=== PATIENT | male | born 1935 | race African-American/Black ===

== ENCOUNTER 2017-01-24 19:28 | Inpatient (IN) | payer OTHER, MEDICAID ==
[~2017-01-24] VITALS: Ht 172.7 cm; Wt 112.9 kg
[2017-01-24 19:56] VITALS: BP_SYST 129
--- NOTE | 2017-01-24 20:13 | NUR ---
Placed in room 05 . Placed on cardiac/vascular sonographer, blood pressure machine and pulse oximeter. To gown for exam. Side rails up. Report given to Sujata
--- NOTE | 2017-01-24 20:20 | NUR ---
Requested Dr Caraballo for MSE , patient c/o 10 /10 lower abdominal pain.
--- NOTE | 2017-01-24 20:45 | NUR ---
PT IN ROOM 5 WITH C/O URINARY RETENTION.DR BUI AWARE.
--- NOTE | 2017-01-24 21:00 | NUR ---
#18 FR Harris catheter with use of sterile technique. Immediate return of 250 cc urine noted. Bedside drainage bag placed below level of bladder. Urine sample collected and sent to lab. Pt tolerated procedure well. Patient arrived with harris in place, changed due to standard of practice prior to admission. Patient unable to toilet self.
[2017-01-24 21:52] LABS: BASOPHILS % (AUTO) 0.7 % (0.0-2.0); EOSINOPHILS # (AUTO) 0.3 K/uL (0.0-0.4); EOSINOPHILS % (AUTO) 4.7 % (0.0-4.0); HEMATOCRIT 31.1 % (36-54); HEMOGLOBIN 10.5 g/dL (14.0-18.0); LYMPHOCYTES # (AUTO) 1.2 K/uL (1.0-5.5); LYMPHOCYTES % (AUTO) 18.2 % (20.5-51.5); MEAN CORPUSCULAR HEMOGLOBIN 30 pg (27-31); MEAN CORPUSCULAR HGB CONC 34 % (32-36); MEAN CORPUSCULAR VOLUME 89 fL (79.0-98.0); MONOCYTES # (AUTO) 0.8 K/uL (0.0-1.0); MONOCYTES % (AUTO) 12.7 % (1.7-9.3); NEUTROPHILS # (AUTO) 4.1 K/uL (1.8-7.7); NEUTROPHILS % (AUTO) 63.7 % (40.0-70.0); PLATELET COUNT (AUTO) 160 K/uL (130-430); RED CELL DISTRIBUTION WIDTH 15.8 % (9.0-15.0); WHITE BLOOD COUNT (AUTO) 6.4 K/uL (4.8-10.8)
[2017-01-24 22:15] LABS: ANION GAP 10 (5-15); CALCIUM 8.9 mg/dL (8.4-11.0); CHLORIDE 107 mmol/L (98-107); GLUCOSE 77 mg/dL (70-99); SODIUM SERUM 136 mmol/L (136-145); UREA NITROGEN, BLOOD 92 mg/dL (8-21)
[2017-01-24] MEDS ORDERED: OXYCODONE/ACETAMINOPHEN 5-325 TABLET PO ONE (22:15)
[2017-01-24 22:21] LABS: ALANINE AMINOTRANSFERASE 12 U/L (12-78); ALBUMIN 3.8 g/dL (3.4-4.8); ASPARTATE AMINOTRANSFERASE 14 U/L (10-37); TOTAL BILIRUBIN 0.5 mg/dL (0.0-1.0); TOTAL PROTEIN, SERUM 7.9 g/dL (6.4-8.3)
[2017-01-24 22:22] LABS: POTASSIUM 7.6 mmol/L (3.5-5.1)
[2017-01-24 22:23] LABS: CREATININE 11.41 mg/dL (0.55-1.30)
[2017-01-24] MEDS ORDERED: INSULIN REGULAR, HUMAN 10 UNITS/0.1 ML INJ IVP ONE (22:30)
[2017-01-24] MEDS ORDERED: DEXTROSE 50% JECT 50 ML DISP.SYRIN IVP ONE (22:30)
[2017-01-24] MEDS ORDERED: SODIUM POLYSTYRENE SULFONATE 15 GM/60 ML UDBTL PO ONE (22:30)
[2017-01-24] MEDS ORDERED: CALCIUM GLUCONATE 1 GM/10 ML VIAL IVP ONE (22:30)
--- NOTE | 2017-01-24 22:30 | NUR ---
# 22 gauge angiocath placed to LAC. Use of asceptic technique. Opsite placed over site. Blood return noted. Blood for lab drawn from site. Flushed with 10 cc of normal saline. No evidence of infiltration noted. Patient tolerated well.
[2017-01-24 23:39] LABS: BILIRUBIN,URINE NEGATIVE (NEGATIVE); CLARITY/URINE CLEAR (CLEAR); COLOR,URINE YELLOW (YELLOW); GLUCOSE,URINE NEGATIVE (NEGATIVE); KETONES,URINE NEGATIVE (NEGATIVE); LEUKOCYTE ESTERASE ,URINE NEGATIVE (NEGATIVE); NITRITE, URINE NEGATIVE (NEGATIVE); PROTEIN URINE TRACE (NEGATIVE); UROBILINOGEN,URINE 0.2 (0.2-1.0)
[2017-01-24 23:40] LABS: BLOOD, URINE TRACE (NEGATIVE)
[2017-01-24] MEDS ORDERED: MORPHINE 4 MG/ML INJ. SYRINGE IVP ONE (23:45)
[2017-01-24] MEDS ORDERED: 0.45% NS 500 ML IV SCH (23:45)
[2017-01-24 23:51] LABS: BACTERIA,URINE RARE /HPF (None Seen); MUCUS,URINE None Seen /LPF (None Seen); WBC,URINE 0-3 /HPF (0-3)
[2017-01-25] VITALS (7 sets, daily range): BP systolic 136–154
--- NOTE | 2017-01-25 | NUR ---
Patient will be admitted to care of DR DAVIS. Admitted to TELE unit. Will go to room 101A. Belongings list completed. Summary report printed. Report will be given at bedside.
[2017-01-25] MEDS ORDERED: LABE100T PO (00:09)
[2017-01-25] MEDS ORDERED: GLIM1TAB PO (00:09)
[2017-01-25] MEDS ORDERED: LOSA50TA3 PO (00:10)
[2017-01-25] MEDS ORDERED: OXYB5TAB11 PO (00:11)
[2017-01-25] MEDS ORDERED: PRO40 PO (00:12)
[2017-01-25] MEDS ORDERED: QUIN40TA PO (00:12)
[2017-01-25] MEDS ORDERED: DET2 PO (00:12)
--- NOTE | 2017-01-25 00:34 | NUR ---
ADMIT NOTE Received pt from ER to the floor with a diagnosis of acute renal failure. Admission process initiated. patient oriented to pain management, safety and call light-teach back done.
--- NOTE | 2017-01-25 00:57 | NUR ---
STEPHEN CON:Steve OVALLE DATE:01/25/17 TIME:0700 REASON FOR CONS:ACUTE RENAL FAILURE STEPHEN REQ:DR.YASHAR Montenegro:ZAHRA
[2017-01-25] MEDS ORDERED: INSULIN REGULAR, HUMAN 100 UNITS/ML, 10 ML VIAL (novoLIN R) SUBCUT PRN (01:00)
[2017-01-25] MEDS ORDERED: ACETAMINOPHEN 325 MG TABLET PO PRN (01:00)
[2017-01-25] MEDS ORDERED: HYDROcodone/ACETAMIN 5-325 MG TAB (NORCO/ VICODIN) PO PRN (01:00)
[2017-01-25] MEDS ORDERED: NS 500 ML IV SCH (01:30)
[2017-01-25] MEDS ORDERED: CITRIC ACID/SODIUM CITRATE 30 ML UDC PO SCH (01:30)
--- NOTE | 2017-01-25 01:54 | NUR ---
PHY CON:Ronaldo HOLDEN DATE:01/25/17 TIME:0700 REASON FOR CONS:STEVE,HX OF PROSTATE CANCER PHY REQ:Natasha HUERTA S.W:ZAHRA
[2017-01-25] MEDS: 0.45% NACL 1,000 ML IV SCH ×3 (02:08→22:24)
--- NOTE | 2017-01-25 02:35 | NUR ---
notes: pt is alert, awake,oriented x 4. complain of mild lower abdominal pain. vital sign are stable. not distress. pt has iv lock to left ac gauge 22-patent and intact. assessment done. pt has discoloration of skin to left lower leg. bilateral pitting edema seen on both fet. discussed poc to pt and daughter. they verbalized understanding. needs attended. call light in reach. side rails up. lowest bed position. will monitor. Addendum: 01/25/17 at 0239 by Talib Duff RN dr. akers is at bedside and seen the pt.
--- NOTE | 2017-01-25 03:00 | NUR ---
notes: pt has harris catheter with bright red clear urine. draining well. no clots.
--- NOTE | 2017-01-25 03:52 | NUR ---
notes: pt call for water. no pain. no distress. stable. needs attended. call light in reach. will monitor.
[2017-01-25] MEDS: ONDANSETRON HCL 4 MG/2 ML VIAL IVP PRN ×2 (05:33→12:22)
--- NOTE | 2017-01-25 06:17 | NUR ---
round notes: pt is awake, complain of nausea. pt also complain that he's hungry. blood sugar 100. needs attended. call light in reach. will monitor.
--- NOTE | 2017-01-25 07:12 | NUR ---
CLOSING: RECEIVED CALL FROM . ASKING FOR INSURANCE. READY BACK TO MD PT INSURANCE. MD STATED HE WILL SEE THE PT. INFORMED MD ABOUT BLOOD IN URINE AND LEVEL OF CREATINE. PT IS STABLE. IVF INFUSING WELL. NO PAIN. CALL LIGHT IN REACH. WILL GIVE BED SIDE REPORT TO AM RN.
[2017-01-25 07:24] LABS: BASOPHILS % (AUTO) 0.5 % (0.0-2.0); EOSINOPHILS # (AUTO) 0.2 K/uL (0.0-0.4); EOSINOPHILS % (AUTO) 3.5 % (0.0-4.0); HEMATOCRIT 31.1 % (36-54); HEMOGLOBIN 10.1 g/dL (14.0-18.0); LYMPHOCYTES # (AUTO) 1.4 K/uL (1.0-5.5); LYMPHOCYTES % (AUTO) 20.5 % (20.5-51.5); MEAN CORPUSCULAR HEMOGLOBIN 29 pg (27-31); MEAN CORPUSCULAR HGB CONC 33 % (32-36); MEAN CORPUSCULAR VOLUME 89 fL (79.0-98.0); MONOCYTES % (AUTO) 13.9 % (1.7-9.3); NEUTROPHILS # (AUTO) 4.3 K/uL (1.8-7.7); NEUTROPHILS % (AUTO) 61.6 % (40.0-70.0); PLATELET COUNT (AUTO) 166 K/uL (130-430); RED BLOOD CELL COUNT(AUTO) 3.48 MIL/uL (4.2-6.2); RED CELL DISTRIBUTION WIDTH 16.3 % (9.0-15.0); WHITE BLOOD COUNT (AUTO) 6.9 K/uL (4.8-10.8)
--- NOTE | 2017-01-25 07:30 | NUR ---
AM ROUNDS: REPORT GIVEN AT BEDSIDE BY KATYA ARIAS. IVF ON GOING AT LEFT AC INTACT. GUZMAN DRAINING TO PINKISH-REDDISH COLOR URINE. NO DISTRESS.
--- NOTE | 2017-01-25 07:32 | NUR ---
RECEIVED CALL FROM DR. ROBERT RIVAS STATED TO CANCELL CONSULT FOR DR. ZIMMERMAN UROLOGIST. INFORM DR. DAVIS THAT I SPOKE TO DR. ZIMMERMAN AND HE WILL SEE THE PT. BUT DR. DAVIS STILL WANTS TO CANCEL THE CONSULT. CALL DR. ZIMMERMAN EXCHANGE TO CANCEL.
[2017-01-25 07:39] LABS: ALANINE AMINOTRANSFERASE 13 U/L (12-78); ALBUMIN 3.5 g/dL (3.4-4.8); ANION GAP 12 (5-15); ASPARTATE AMINOTRANSFERASE 12 U/L (10-37); CALCIUM 8.9 mg/dL (8.4-11.0); CHLORIDE 108 mmol/L (98-107); GLUCOSE 102 mg/dL (70-99); SODIUM SERUM 140 mmol/L (136-145); TOTAL BILIRUBIN 0.7 mg/dL (0.0-1.0); TOTAL PROTEIN, SERUM 7.5 g/dL (6.4-8.3); UREA NITROGEN, BLOOD 85 mg/dL (8-21)
[2017-01-25 08:05] LABS: POTASSIUM 6.2 mmol/L (3.5-5.1)
[2017-01-25] MEDS ORDERED: PANTOPRAZOLE SODIUM 40 MG TAB PO SCH (09:00)
[2017-01-25] MEDS: CITRIC ACID/SODIUM CITRATE 30 ML UDC PO SCH ×2 (09:10→21:40)
[2017-01-25] MEDS: LABETALOL HCL 100 MG TABLET PO SCH ×2 (09:11→21:39)
--- NOTE | 2017-01-25 09:16 | NUR ---
MEDS: TOOK HIS PO MEDS WELL. ON WILLIAMSON'S POSITION ,FOR RENAL ULTRASOUND ORDERED.DAUGHTER AT BEDSIDE.
[2017-01-25] MEDS ORDERED: SODIUM POLYSTYRENE SULFONATE 15 GM/60 ML UDBTL PO ONE (10:00)
--- NOTE | 2017-01-25 10:45 | NUR ---
Nutrition Update Kenan Scale 17 noted. Pt admitted for ARF. Diet: [facility] BMI: 37.9 kg/m2 RD to follow per nutrition care standards.
--- NOTE | 2017-01-25 12:05 | NUR ---
BLOOD SUGAR: BLOOD SUGAR TAKEN,NO INSULIN NEEDED PER SLIDING SCALE. KAYEXALATE 30GRAMS PO GIVEN SLOWLY. DAUGHTER AT BEDSIDE.
--- NOTE | 2017-01-25 12:26 | NUR ---
ZOFRAN IV: PT VOMITED YELLOWISH COLOR DISCHARGES,DUE IV ZOFRAN GIVEN ORDERED.
[2017-01-25] MEDS ORDERED: FAMOTIDINE 20 MG TABLET PO ONE (13:45)
--- NOTE | 2017-01-25 14:37 | NUR ---
RN ROUNDS: NO VOMITING NOTED. STABLE.
--- NOTE | 2017-01-25 16:21 | NUR ---
ROUNDS: RESTING. NO DISTRESS.
--- NOTE | 2017-01-25 17:11 | NUR ---
BLOOD SUGAR: BLOOD SUGAR TAKEN,NO INSULIN NEEDED PER SLIDING SCALE.
--- NOTE | 2017-01-25 18:44 | NUR ---
END OF SHIFT: STABLE. NO DISTRESS. SON AT BEDSIDE.
--- NOTE | 2017-01-25 19:30 | NUR ---
Received patient report from outgoing AM nurse. Patient alert, verbally and coherently responsive to sign writer hand. Reported that he is presently going bowel movement greer due to the medication he took this morning. Explained to patient that is the intended effect of the medication to lower his potassium level, and to call for assistance anytime he needs. Patient verbally agreed.
[2017-01-25] MEDS ORDERED: TEMAZEPAM 15 MG CAPSULE PO PRN (23:00)
--- NOTE | 2017-01-25 23:05 | NUR ---
CONTINUITY OF CARE ASSUMED PATIENT CARE FROM PRODUCTION SUPERVISOR TRAINEE TERESITA, PATIENT IN BED, VITALS STABLE AND DENIES ANY PAIN AND DISCOMFORT AT THIS TIME. NEEDS ATTENDED TO. WILL CONTINUE TO MONITOR.
[2017-01-26] VITALS (7 sets, daily range): BP systolic 121–156
--- NOTE | 2017-01-26 02:10 | NUR ---
ROUNDS PATIENT ASLEEP, NO SOB NOR PAIN AND DISCOMFORT NOTED, WILL CONTINUE TO MONITOR.
--- NOTE | 2017-01-26 04:00 | NUR ---
PATIENT RESTING: Patient resting quietly. No acute distress noted. Vital signs within normal range.
[2017-01-26] MEDS: 0.45% NACL 1,000 ML IV SCH ×3 (05:34→20:53)
--- NOTE | 2017-01-26 06:15 | NUR ---
CLOSING NOTES PATIENT AWAKE, VITALS STABLE, NO PAIN AND DISCOMFORT AT THIS TIME. ALL NEEDS ATTENDED TO. SAFETY MEASURES MAINTAINED. CALL LIGHT PLACED WITHIN REACH.
[2017-01-26 06:42] LABS: BASOPHILS % (AUTO) 0.7 % (0.0-2.0); EOSINOPHILS # (AUTO) 0.4 K/uL (0.0-0.4); EOSINOPHILS % (AUTO) 6.1 % (0.0-4.0); HEMATOCRIT 30.1 % (36-54); HEMOGLOBIN 9.9 g/dL (14.0-18.0); LYMPHOCYTES # (AUTO) 1.2 K/uL (1.0-5.5); LYMPHOCYTES % (AUTO) 20.8 % (20.5-51.5); MEAN CORPUSCULAR HEMOGLOBIN 30 pg (27-31); MEAN CORPUSCULAR HGB CONC 33 % (32-36); MEAN CORPUSCULAR VOLUME 90 fL (79.0-98.0); MONOCYTES # (AUTO) 0.8 K/uL (0.0-1.0); MONOCYTES % (AUTO) 13.5 % (1.7-9.3); NEUTROPHILS # (AUTO) 3.3 K/uL (1.8-7.7); NEUTROPHILS % (AUTO) 58.9 % (40.0-70.0); PLATELET COUNT (AUTO) 146 K/uL (130-430); RED BLOOD CELL COUNT(AUTO) 3.36 MIL/uL (4.2-6.2); RED CELL DISTRIBUTION WIDTH 16.3 % (9.0-15.0); WHITE BLOOD COUNT (AUTO) 5.8 K/uL (4.8-10.8)
[2017-01-26 06:48] LABS: ALANINE AMINOTRANSFERASE 12 U/L (12-78); ALBUMIN 3.1 g/dL (3.4-4.8); ANION GAP 7 (5-15); ASPARTATE AMINOTRANSFERASE 13 U/L (10-37); CALCIUM 8.2 mg/dL (8.4-11.0); CHLORIDE 108 mmol/L (98-107); CREATININE 7.17 mg/dL (0.55-1.30); GLUCOSE 96 mg/dL (70-99); POTASSIUM 4.6 mmol/L (3.5-5.1); SODIUM SERUM 142 mmol/L (136-145); TOTAL BILIRUBIN 0.8 mg/dL (0.0-1.0); TOTAL PROTEIN, SERUM 6.9 g/dL (6.4-8.3); UREA NITROGEN, BLOOD 59 mg/dL (8-21)
[2017-01-26 08:02] LABS: INR 1.1 (0.80-1.20); PROTHROMBIN TIME 11.8 SECS (9.5-12.5)
[2017-01-26] MEDS: FAMOTIDINE 20 MG TABLET PO SCH (08:40)
[2017-01-26] MEDS: LABETALOL HCL 100 MG TABLET PO SCH ×2 (08:41→21:49)
[2017-01-26] MEDS: CITRIC ACID/SODIUM CITRATE 30 ML UDC PO SCH ×2 (08:41→21:40)
--- NOTE | 2017-01-26 10:12 | NUR ---
Spoke with pt at bedside. He is alert. lives with roommate in ss home, uses a walker with a seat or a cane. Son Lenny at bedside [phone]. Sister Jacky is primary contact (number on facesheet). Both work but try to attend MD appts and provide transport. Per pt, medical condition has declined and has not driven for over a month but does have access to [employer] transportation. Advised that [employer] has additional benefits because he has renal failure...pt or family will need to notify plan. Also discussed MCAL briefly. May qualify for share of cost. Will follow hosp course/damian gunderson/christine/catia hcp [phone]
--- NOTE | 2017-01-26 10:36 | NUR ---
ROUNDING: AM MEDS GIVEN, PT TOLERATED WELL. SON AT BEDSIDE. PT AAOX4. NO ACUTE SIGNS OF RESP DISTRESS, PT ON RA. SKIN COLOR NORMAL FOR ETHNICITY. IV INTACT AND PATENT, NO REDNESS/PAIN/SWELLING. FC INTACT AND DRAINING WELL. DENIES PAIN AT THIS TIME. BED AT LOWEST POSITION, CALL LIGHT IN REACH, BED ALARM ON, SIDE RAILX3.
--- NOTE | 2017-01-26 12:47 | NUR ---
ROUNDING: PT LAYING IN BED, IN HIGH FOWLERS. PT EATING LUNCH. NO ACUTE SIGNS OF RESP DISTRESS, NO SOB. SKIN COLOR NORMAL FOR ETHNICITY. IV INTACT AND PATENT, NO REDNESS/SWELLING/PAIN. PT DENIES DIZZINESS/LIGHTHEADED, COOLNESS, SWEATING. DENIES NUMBNESS/TINGLING. EDUCATED PT ON SIGNS & SYMPTOMS OF HYPOGLYCEMIA AND HYPERGLYCEMIA, PT VERBALIZED UNDERSTANDING. FC INTACT AND PATENT, DRAINING WELL TO GRAVITY. BED AT LOWEST POSITION, CALL LIGHT IN REACH, BED ALARM ON, SIDE RAILX3.
--- NOTE | 2017-01-26 14:08 | NUR ---
ROUNDING: PT RESTING IN BED. AAOX4. NO ACUTE SIGNS OF RESP DISTRESS, NO SOB. SKIN COLOR NORMAL FOR ETHNICITY. IV INTACT AND PATENT, NO REDNESS/SWELLING/PAIN. IVF INFUSING WELL. FC INTACT AND DRAINING WELL TO GRAVITY. PT DENIES DIZZINESS/LIGHTHEADED, COOLNESS, AND SWEATING. DENIES NUMBNESS/TINGING. BED AT LOWEST POSITION, CALL LIGHT IN REACH, BED ALARM ON, SIDE RAILX3. CONTINUE TO MONITOR.
--- NOTE | 2017-01-26 16:09 | NUR ---
ROUNDING: PT RESTING IN BED, HIGH FOWLERS WATCHING TV. DAUGHTER CALLED AND WANTED TO LET PT KNOW SHE WILL BE AN HOUR LATE. PT INFORMED AND VERBALIZED UNDERSTANDING. NO ACUTE SIGNS OF RESP DISTRESS, NO SOB. SKIN COLOR NORMAL FOR ETHNICITY. IV INTACT, NO REDNESS/SWELLING/PAIN. FC INTACT AND DRAINING WELL TO GRAVITY. PT DENIES PAIN AT THIS TIME. DENIES DIZZINESS/LIGHTHEADED, COOLNESS, SWEATING, NUMBNESS/TINGLING. ABLE TO MOVE BILATERAL TOES. BED AT LOWEST POSITION, CALL LIGHT IN REACH, BED ALARM ON, SIDE RAILX3.
--- NOTE | 2017-01-26 18:28 | NUR ---
CLOSING NOTE: DAUGHTER AT BEDSIDE. PT SITTING UP IN HIGH FOWLERS, EATING DINNER. NO ACUTE SIGNS OF RESP DISTRESS, NO SOB. PT ON ROOM AIR. SKIN WARM DRY AND COLOR NORMAL FOR ETHNICITY. IV INTACT AND PATENT, NO REDNESS/SWELLING/PAIN. FC INTACT AND DRAINING WELL TO GRAVITY. PT DENIES DIZZINESS, LIGHTHEADED, COOLNESS, SWEATING. DENIES NUMBNESS/TINGING. ALL QUESTIONS ANSWERED. BED AT LOWEST POSITION, CALL LIGHT IN REACH, BED ALARM ON, SIDE RAILX3. WILL ENDORSE PLAN OF CARE TO JOHN GANNON.
--- NOTE | 2017-01-26 19:25 | NUR ---
BEDSIDE REPORT DONE.PATIENT EATING DINNER , AT BEDSIDE.ORIENTED X4. IVF INFUSING WELL ,SITE CLEAR. GUZMAN CATH WITH LIGHT PINKISH CLEAR COLOR. SCD /BED ALARM ON.
--- NOTE | 2017-01-26 20:05 | NUR ---
PATIENT CONVERSING AND WATCHING TV SHOWS WITH FAMILIES WHO ARE AT BEDSIDE..IVF OF 1/2NS INFUSING WELL TO LEFT AC ,SITE CLEAR.DENIES CHEST PAIN NOR SOB. ABDOMEN LARGE AND SOFT..HAS GUZMAN CATHETER WITH LIGHT PINKISH CLEAR COLOR URINE. SINUS RHYTHM ON TELEMONITOR. CALL LIGHT WITHIN REACH.BED IN LOW POSITION.EDUCATED ON ASPIRATION/FALL PRECAUTION,NUTRITION.
--- NOTE | 2017-01-26 21:40 | NUR ---
MEDS ADMIN: ALL DUE PO.IV MEDS GIVEN. TOOK BACITRA WITH CHOCOLATE PUDDING. BEING HELPED BY GRANDSON. DENIES PAIN.
--- NOTE | 2017-01-26 22:15 | NUR ---
PATIENT CALLED TO HAVE BED TAYLOR TO TRY TO HAVE BOWEL MOVEMENT. PLACED .
[2017-01-27] VITALS (7 sets, daily range): BP systolic 117–144
--- NOTE | 2017-01-27 00:05 | NUR ---
patient resting with eyes close during this rounds.
--- NOTE | 2017-01-27 03:30 | NUR ---
awakened due to vital signs taking. offered bed patterson but refuse he will do in am.denies pain.
[2017-01-27] MEDS: 0.45% NACL 1,000 ML IV SCH ×3 (05:03→20:06)
--- NOTE | 2017-01-27 06:40 | NUR ---
CLOSING: ALL NEEDS WERE ATTENDED.NO ACUTE CARDIOPULMONARY DISTRESS .SLEPT AT LONG INTERVALS. NO SIGNS OF HYPOGLYCEMIA. SINUS RHYTHM.
[2017-01-27 07:41] LABS: BASOPHILS % (AUTO) 0.8 % (0.0-2.0); EOSINOPHILS # (AUTO) 0.4 K/uL (0.0-0.4); EOSINOPHILS % (AUTO) 6.4 % (0.0-4.0); HEMATOCRIT 28.1 % (36-54); HEMOGLOBIN 9.2 g/dL (14.0-18.0); LYMPHOCYTES # (AUTO) 1.5 K/uL (1.0-5.5); MEAN CORPUSCULAR HEMOGLOBIN 29 pg (27-31); MEAN CORPUSCULAR HGB CONC 33 % (32-36); MEAN CORPUSCULAR VOLUME 89 fL (79.0-98.0); MONOCYTES # (AUTO) 0.7 K/uL (0.0-1.0); NEUTROPHILS % (AUTO) 54.8 % (40.0-70.0); PLATELET COUNT (AUTO) 144 K/uL (130-430); RED BLOOD CELL COUNT(AUTO) 3.15 MIL/uL (4.2-6.2); RED CELL DISTRIBUTION WIDTH 16.1 % (9.0-15.0); WHITE BLOOD COUNT (AUTO) 5.6 K/uL (4.8-10.8)
--- NOTE | 2017-01-27 07:50 | NUR ---
OPENING NOTE: PT REPOSITION. SITTING UP EATING BREAKFAST. PT AAOX4. NO ACUTE SIGNS OF RESP DISTRESS, NO SOB. SKIN WARM DRY AND COLOR NORMAL FOR ETHNICITY. IV INTACT AND PATENT, NO REDNESS/SWELLING/PAIN. IVF INFUSING WELL. FC INTACT AND DRAINING WELL TO GRAVITY. BED AT LOWEST POSITION, CALL LIGHT IN REACH, BED ALARM ON, SIDE RAILX3.
[2017-01-27 08:03] LABS: ANION GAP 6 (5-15); CALCIUM 8.1 mg/dL (8.4-11.0); CHLORIDE 109 mmol/L (98-107); CREATININE 5.24 mg/dL (0.55-1.30); GLUCOSE 105 mg/dL (70-99); POTASSIUM 4.2 mmol/L (3.5-5.1); SODIUM SERUM 142 mmol/L (136-145); UREA NITROGEN, BLOOD 47 mg/dL (8-21)
[2017-01-27] MEDS: CITRIC ACID/SODIUM CITRATE 30 ML UDC PO SCH ×2 (08:35→22:13)
[2017-01-27] MEDS: LABETALOL HCL 100 MG TABLET PO SCH ×2 (08:36→22:14)
[2017-01-27] MEDS: FAMOTIDINE 20 MG TABLET PO SCH (08:36)
--- NOTE | 2017-01-27 10:26 | NUR ---
ROUNDING: FAMILY AT BEDSIDE. WORKING WITH PT THIS MORNING. NO ACUTE SIGNS OF RESP DISTRESS, NO SOB. SKIN COLOR NORMAL FOR ETHNICITY. IV INTACT AND PATENT, NO REDNESS/PAIN/SWELLING. IVF INFUSING WELL. FC INTACT AND DRAINING WELL. CALL LIGHT IN REACH, BED ALARM ON, SIDE RAILX3, BED AT LOWEST POSITION.
--- NOTE | 2017-01-27 12:00 | NUR ---
ROUNDING: PT RESTING IN BED IN HIGH FOWLERS, TALKING TO FAMILY AT BEDSIDE. NO ACUTE SIGNS OF RESP DISTRESS, NO SOB. PT IS ON ROOM AIR. SKIN COLOR NORMAL FOR ETHNICITY. IV INTACT AND PATENT, NO REDNESS/SWELLING/PAIN TO SITE. FC INTACT AND DRAINING WELL TO GRAVITY. BED AT LOWEST POSITION, CALL LIGHT IN REACH, BED ALARM ON, SIDE RAILX3. Addendum: 01/27/17 at 1211 by Bradford العراقي RN DENIES DIZZINESS/LIGHTHEADED, COOLNESS, SWEATING. DENIES NUMBNESS/TINGLING.
[2017-01-27] MEDS ORDERED: METOCLOPRAMIDE HCL 10 MG/2 ML VIAL IVP PRN (13:00)
--- NOTE | 2017-01-27 14:17 | NUR ---
ROUNDING: FAMILY MEMBER AT BEDSIDE. PT LAYING IN BED IN HIGH FOWLERS. NO ACUTE SIGNS OF RESP DISTRESS, NO SOB. SKIN COLOR NORMAL FOR ETHNICITY. PT DENIES PAIN, DIZZINESS/LIGHTHEADED, COOLNESS, SWEATING. DENIES NUMBNESS/TINGLING. DENIES NAUSEA AND VOMITING AT THIS TIME. FC INTACT AND DRAINING WELL TO GRAVITY. IV INTACT AND PATENT, NO REDNESS/SWELLING/PAIN. IVF INFUSING WELL. BED AT LOWEST POSITION, CALL LIGHT IN REACH, BED ALARM ON, SIDE RAILX3.
--- NOTE | 2017-01-27 15:02 | NUR ---
PHYSICAL THERAPY CO-SIGN The Physical Therapy Progress Notes documented by Biological Inspector have been reviewed. Reviewed/Co-Signed by: Jossy Michelle PT Documentation Done by: VERONICA CONTRERAS PTA PT MAKING SLOW GAINS Addendum: 01/27/17 at 1502 by Jossy Michelle PT Amended: Links added.
--- NOTE | 2017-01-27 16:08 | NUR ---
ROUNDING: ASSISTED PATIENT ONTO BED TAYLOR. DAUGHTER AT BEDSIDE. NO ACUTE SIGNS OF RESP DISTRESS, NO SOB. SKIN COLOR NORMAL FOR ETHNICITY. IV INTACT AND PATENT, NO REDNESS/SWELLING/PAIN TO IV SITE. IVF INFUSING WELL. FC INTACT AND DRAINING WELL. BED AT LOWEST POSITION, CALL LIGHT IN REACH, BED ALARM ON, SIDE RAILX3.
--- NOTE | 2017-01-27 18:32 | NUR ---
CLOSING NOTE: DAUGHTER AT BEDSIDE. PT LAYING IN BED, HIGH FOWLERS TALKING TO DAUGHTER AND WATCHING TV. NO ACUTE SIGNS OF RESP DISTRESS, NO SOB. PT DENIES DIZZINESS/LIGHTHEADED, COOLNESS, SWEATING, DIZZINES/TINGLING. PT AAOX4. IV INTACT AND PATENT, NO REDNESS/SWELLING/PAIN TO SITE. FC INTACT AND DRAINING WELL TO GRAVITY. ALL NEEDS MET AT THIS TIME. WILL ENDORSE PLAN OF CARE TO JOHN GANNON.
--- NOTE | 2017-01-27 19:30 | NUR ---
HYGIENE: JUSTYNA CARE DONE DUE TO INCONTINENT OF SMALL LOOSE STOOL.
--- NOTE | 2017-01-27 20:00 | NUR ---
INITIAL NOTES: PATIENT ION BED AWAKE ,ORIENTED X4. FAMILIES AT BEDSIDE ALL CONVERSING TO EACH OTHER. IVF INFUSING WELL. GUZMAN DRAINING LIGHT PINKISH . SINUS RHYTHM. HAD GOOD DINNER. VITAL SIGNS STABLE. DENIES SOB NOR PAIN. WILL MONITOR CLOSEL.
--- NOTE | 2017-01-27 21:00 | NUR ---
MEDS ADMIN: ALL MEDS GIVEN WITH PUDDING DUE TO BAD TASTE. IVF INFUSING WELL.
--- NOTE | 2017-01-27 21:15 | NUR ---
REQUESTED FOR BEDPAN TO HAVE BOWEL MOVEMENT.HAD SMALL LOOSE STOOL.
--- NOTE | 2017-01-27 23:30 | NUR ---
ASKED FOR BED TO HAVE BM. FALSE ALARM. PASSED GAS. EXPLAIN WILL ASK FOR STOOL SOFTENER FROM MD IN AM.
[2017-01-28 00:15] VITALS: BP_SYST 119
--- NOTE | 2017-01-28 01:00 | NUR ---
PATIENT RESTING QUIETELY ,WITH EYES CLOSE. AROUSABLE. NO DISTRESS.
--- NOTE | 2017-01-28 03:00 | NUR ---
HAS SMEAR OF STOOL. JUSTYNA CARE DONE.
[2017-01-28] MEDS: 0.45% NACL 1,000 ML IV SCH ×2 (04:13→12:29)
[2017-01-28 04:42] VITALS: BP_SYST 147
[2017-01-28 07:21] LABS: BASOPHILS % (AUTO) 0.8 % (0.0-2.0); EOSINOPHILS # (AUTO) 0.4 K/uL (0.0-0.4); EOSINOPHILS % (AUTO) 7.1 % (0.0-4.0); HEMATOCRIT 28.4 % (36-54); HEMOGLOBIN 9.3 g/dL (14.0-18.0); LYMPHOCYTES # (AUTO) 1.5 K/uL (1.0-5.5); LYMPHOCYTES % (AUTO) 25.1 % (20.5-51.5); MEAN CORPUSCULAR HEMOGLOBIN 30 pg (27-31); MEAN CORPUSCULAR HGB CONC 33 % (32-36); MEAN CORPUSCULAR VOLUME 90 fL (79.0-98.0); MONOCYTES # (AUTO) 0.7 K/uL (0.0-1.0); MONOCYTES % (AUTO) 12.2 % (1.7-9.3); NEUTROPHILS # (AUTO) 3.3 K/uL (1.8-7.7); NEUTROPHILS % (AUTO) 54.8 % (40.0-70.0); PLATELET COUNT (AUTO) 136 K/uL (130-430); RED BLOOD CELL COUNT(AUTO) 3.15 MIL/uL (4.2-6.2); RED CELL DISTRIBUTION WIDTH 15.7 % (9.0-15.0); WHITE BLOOD COUNT (AUTO) 5.9 K/uL (4.8-10.8)
--- NOTE | 2017-01-28 07:30 | NUR ---
CLOSING: PATIENT VERBALIZING WANT TO GO HOME. ALL NEEDS WERE ATTENDED. ASPIRATION /FALL PRECAUTION IN PROCESS.NO SIGNS OF HYPOGLYCEMIA.NO ACUTE CARDIOPULMONARY DISTRESS. REMINDED RN TO GIVE WARM WATER WITH SALT TO DO MOUTH WASH. SLEPT AT SHORT INTERVALS. WILL GIVE REPORT TO AM RN.
[2017-01-28 08:01] LABS: ANION GAP 9 (5-15); CALCIUM 8.3 mg/dL (8.4-11.0); CHLORIDE 105 mmol/L (98-107); CREATININE 3.98 mg/dL (0.55-1.30); GLUCOSE 92 mg/dL (70-99); POTASSIUM 3.8 mmol/L (3.5-5.1); SODIUM SERUM 140 mmol/L (136-145); UREA NITROGEN, BLOOD 39 mg/dL (8-21)
[2017-01-28 08:10] VITALS: BP_SYST 120
[2017-01-28] MEDS: CITRIC ACID/SODIUM CITRATE 30 ML UDC PO SCH (08:13)
[2017-01-28] MEDS: FAMOTIDINE 20 MG TABLET PO SCH (08:14)
[2017-01-28] MEDS: LABETALOL HCL 100 MG TABLET PO SCH (08:14)
--- NOTE | 2017-01-28 08:15 | NUR ---
Routine Patient eating breakfast with daughterJacky at bedside. Scheduled medications given per order. Patient stable.
--- NOTE | 2017-01-28 10:14 | NUR ---
plan transfer to [facility] when CT is completed. Call placed to [facility] [phone] to set up w/c transport. for 5pm once CT scan is completed. Pt and family aware. damian gunderson/christine/catia [phone]
--- NOTE | 2017-01-28 10:20 | NUR ---
Routine Patient resting in bed with daughter at bedside. No complaint of pain or discomfort. Patient stable.
[2017-01-28] MEDS ORDERED: PANTOPRAZOLE SODIUM 40 MG TAB PO ONE (11:00)
--- NOTE | 2017-01-28 12:25 | NUR ---
Routine Patient sitting in chair at bedside. Daughter at bedside as well. Blood sugar checked at 1135 - result 135 mg/dl - no coverage required. Scheduled med given per order. Patient stable at this time.
[2017-01-28 12:47] VITALS: BP_SYST 129
--- NOTE | 2017-01-28 13:01 | NUR ---
Terrazzo Finisher Helper Note RAFAEL received a call from patient's nurse requesting SALES HUNTER meet with patient's daughter at her request. RAFAEL met with patient's daughter, Jacky, at bedside. Jacky stated that patient has [employer] but the share of cost is very high: $1,600. She would like this checked as patient would like to receive In Home Supportive Services. Patient is currently paying privately for non-medical in home care, and will probably require increased hours when he returns home from the SNF. RAFAEL noted that patient has [employer] listed as a third insurance. RAFAEL sent an email to Raul with [employer] requesting he contact Jacky, , to determine if anything can be done to reduce patient's share of cost. RAFAEL discussed above with patient and his daughter. They have Social Service contact information; will remain available upon request. Addendum: 01/28/17 at 1539 by Chana Nix LCSW RAFAEL received a call from Raul. He stated he will contact patient's daughter. RAFAEL discussed with Jacky.
[2017-01-28] MEDS ORDERED: PHENAZOPYRIDINE HCL 100 MG TABLET PO ONE (13:15)
--- NOTE | 2017-01-28 13:34 | NUR ---
Dr. Mendoza informed regarding result CT Scan abdomen/pelvis .
--- NOTE | 2017-01-28 14:53 | NUR ---
PHYSICAL THERAPY CO-SIGN The Physical Therapy Progress Notes documented by Band Ripsaw Operator have been reviewed. I CONCUR W/EDI PROGRAMMER ANALYST NOTE; CONT PER TX PLAN Reviewed/Co-Signed by: Kamryn Brady PT Documentation Done by: VERONICA CONTRERAS EDI PROGRAMMER ANALYST Addendum: 01/28/17 at 1454 by Kamryn Brady PT Amended: Links added.
[2017-01-28 15:51] VITALS: BP_SYST 132
--- NOTE | 2017-01-28 16:00 | NUR ---
Routine Tap water enema done per order. Patient tolerated well.
--- NOTE | 2017-01-28 17:18 | NUR ---
Called report to JOHN Nguyễn at [facility] [phone].
[2017-01-28 17:21] VITALS: BP_SYST 132
--- NOTE | 2017-01-28 17:40 | NUR ---
Transfer Patient transferred in stable in wheelchair via ambulance to [facility] .
[2017-01-28] MEDS ORDERED: PHENAZOPYRIDINE HCL 100 MG TABLET PO SCH (18:30)
[2017-01-29] MEDS ORDERED: PANTOPRAZOLE SODIUM 40 MG TAB PO SCH (09:00)
== END 2017-01-28 17:40 | DRG 684 ==
LOC: SED 19:28 → STU 23:32
PROVIDERS: ADMIT Internal Medicine; ATTEND Internal Medicine
DX: N17.9 Acute kidney failure, unspecified (principal); D63.8 Anemia in other chronic diseases classified elsewhere; E11.9 Type 2 diabetes mellitus without complications; E87.5 Hyperkalemia; G89.29 Other chronic pain; R10.9 Unspecified abdominal pain; I10 Essential (primary) hypertension; N40.0 Benign prostatic hyperplasia without lower urinary tract symptoms; Z85.46 Personal history of malignant neoplasm of prostate; Z79.899 Other long term (current) drug therapy; Z92.3 Personal history of irradiation
CPT/HCPCS: 36415; 76770; 80048; 80053; 81000-TC; 82962; 83605; 84484; 85025; 85610-TC; 85730-TC; 87040-TC; 93005; 96374; 96375; 97110-GP; 97116-GP; 97530-GP; 99285; J0610; J1815; J2270; J2405; J7030; J7040